=== PATIENT | male | born 1975 | race Caucasian/White ===

== ENCOUNTER 2019-11-26 09:36 | Day surgery (SDC) | payer OTHER ==
[2019-11-15 15:54] LABS: BASOPHILS % (AUTO) 0.3 % (0-1); EOSINOPHILS # (AUTO) 0.2 X10'3 (0-0.9); EOSINOPHILS % (AUTO) 3.1 % (0-6); LYMPHOCYTES # (AUTO) 1.6 X10'3 (1.1-4.8); LYMPHOCYTES % (AUTO) 26.6 % (21-51); MEAN CORPUSCULAR HEMOGLOBIN 29.5 PG (27.0-31.0); MEAN CORPUSCULAR HGB CONC 34.2 g/dL (33.0-36.5); MEAN CORPUSCULAR VOLUME 86.2 FL (78-98); MEAN PLATELET VOLUME 7.7 FL (7.4-10.4); MONOCYTES # (AUTO) 0.7 X10'3 (0-0.9); NEUTROPHILS # (AUTO) 3.6 X10'3 (1.8-7.7); PRE OP HEMATOCRIT 42.1 % (42.0-52.0); PRE OP HEMOGLOBIN 14.4 g/dL (14.0-17.9); PRE OP PLATELET COUNT 214 X10'3 (140-440); RED BLOOD COUNT 4.88 X10'6 (4.70-6.10); RED CELL DISTRIBUTION WIDTH 13.6 % (11.5-14.5)
[2019-11-15 16:16] LABS: ALBUMIN 3.9 G/DL (3.4-5.0); ALBUMIN/GLOBULIN RATIO 1.1 (1.1-1.5); ALKALINE PHOSPHATASE 57 IU/L (46-116); BLOOD UREA NITROGEN 14 MG/DL (7-18); BUN/CREATININE RATIO 16.9 (5.4-32.0); CALCIUM 8.9 MG/DL (8.5-10.1); CHLORIDE 103 MMOL/L (99-107); CREATININE 0.83 MG/DL (0.60-1.10); PRE OP ALT 41 U/L (30-65); PRE OP ANION GAP 8 (8-16); PRE OP AST 24 U/L (10-37); PRE OP BILIRUB, TOTAL 0.6 MG/DL (0.0-1.0); PRE OP GLUCOSE 98 MG/DL (70-104); PRE OP SODIUM 140 MMOL/L (135-145); TOTAL PROTEIN 7.5 G/DL (6.4-8.2); eGFR > 90 ML/MIN
[2019-11-26] VITALS (15 sets, daily range): BP systolic 113–145; BP diastolic 71–96
[~2019-11-26] VITALS: Ht 175.3 cm; Wt 88.5 kg
[~2019-11-26 09:36] MED LIST: ASCO-157 PO; BIOT1CAP3 PO; HYDR-4353 PO; ISOT20CA3 PO; KRILL OIL; LIDOcaine 0.5% (5mg/ml) 50ml vial ONE; MULT-1085 PO; TUMERIC; [UNRECOGNIZED DRUG - OTHER]; clindamycin-Cleocin 900mg/D5W 50 ML IV ONE; famotidine 20mg tablet PO ONE; ringers solution, lacted 1,000 ML IV SCH
[2019-11-26] MEDS ORDERED: ringers solution, lacted 1,000 ML IV SCH (09:52)
[2019-11-26] MEDS ORDERED: ondansetron/PF 4mg/2ml inj IV PRN (09:55)
[2019-11-26] MEDS ORDERED: hydrALAZINE 20mg/ml inj. IV PRN (09:55)
[2019-11-26] MEDS ORDERED: morphine 2 MG/ML inj. syringe IV PRN (09:55)
[2019-11-26] MEDS ORDERED: labetalol 20mg/4ml (5mg/ml) syringe IV PRN (09:55)
[2019-11-26] MEDS ORDERED: fentaNYL/PF 50MCG/1 ML 2ML syringe IV PRN (09:55)
[2019-11-26] MEDS ORDERED: BUPIVAcaine/PF 2.5mg/ml (0.25%) 10ml vial ONE (13:17)
[2019-11-26] MEDS ORDERED: MIDAZolam 1mg/ml 10ml vial ONE (13:21)
[2019-11-26] MEDS ORDERED: fentaNYL/PF 50MCG/1 ML 2ML syringe ONE (13:21)
[2019-11-26] MEDS ORDERED: propofol inj 20 ML IV ONE ×3 (13:25→14:16)
[2019-11-26] MEDS ORDERED: ketorolac trometh. 30mg/ml inj. ONE (13:25)
[2019-11-26] MEDS ORDERED: cefazolin/dext.iso 2,000MG/50 ML BAG IV ONE (13:27)
[2019-11-26] MEDS ORDERED: BUPIVAcaine/PF 2.5 mg/ml (0.25%) 30ml vial ONE (13:42)
--- NOTE | 2019-11-26 14:34 | NUR ---
Received from OR via [facility], accompanied by Anesthesiologist DR YARBROUGH and report given by Anesthesiologist. PT DROWSY, DENIES PAIN, RIGHT HAND/WRIST TO ABOVE ELBOW W/JORGE WRAP COVERING INCISIONS/DRSGS CDI, FINGERS PWD, TRIAL COURT JUSTICE 1-2 SECONDS. Addendum: 11/26/19 at 1455 by Vivian Westbrook RN Amended: Links added.
[2019-11-26] MEDS: morphine 4 MG/ML inj SYRINge IV PRN ×2 (15:12→15:23)
[2019-11-26] MEDS: fentaNYL/PF 50MCG/1 ML 2ML syringe IV PRN ×2 (15:53→16:05)
[2019-11-26] MEDS ORDERED: HYDROcodone/acetaminophen 10/325mg tab PO ONE (16:10)
[2019-11-26] MEDS ORDERED: acetaminophen 1,000mg/100ml IV 100 ML IV ONE (16:10)
--- NOTE | 2019-11-26 17:24 | NUR ---
PT PAIN MODERATE, DR YARBROUGH AWARE. D/C INSTRUCTIONS GIVEN AND GONE OVER W/PT AND PTS WHO VERBALIZED UNDERSTANDING. PT D/CD TO HOME VIA W/C TO PRIVATE VEHICLE W/O INCIDENT. Addendum: 11/26/19 at 1830 by Vivian Westbrook RN Amended: Links added.
== END 2019-11-26 17:24 | disposition home or self-care (01) ==
LOC: PAS 09:36 → EDUNIT# 12:45 → PAS 17:24
PROVIDERS: ATTEND Orthopaedic Surgery Hand Surgery
DX: G56.01 Carpal tunnel syndrome, right upper limb (principal); G56.31 Lesion of radial nerve, right upper limb; G47.33 Obstructive sleep apnea (adult) (pediatric); F41.9 Anxiety disorder, unspecified; E66.9 Obesity, unspecified; Z68.28 Body mass index [BMI] 28.0-28.9, adult; Z79.899 Other long term (current) drug therapy; Z20.828 Contact with and (suspected) exposure to other viral communicable diseases; Z98.890 Other specified postprocedural states; Z98.52 Vasectomy status; Z72.89 Other problems related to lifestyle; Z87.891 Personal history of nicotine dependence; Z88.8 Allergy status to other drugs, medicaments and biological substances
CPT/HCPCS: 36415; 64708; 64721; 80053; 82948; 85025; 87635; 93005; J0131; J1885; J2001; J2250; J2270; J2704; J3010; J3490; A4215; A6449; A7000; J7120

== ENCOUNTER → 2023-03-31 | Outpatient (CLI) | payer BC, OTHER ==
[~2023-03-31] MED LIST changes: -LIDOcaine 0.5% (5mg/ml) 50ml vial ONE; -clindamycin-Cleocin 900mg/D5W 50 ML IV ONE; -famotidine 20mg tablet PO ONE; -ringers solution, lacted 1,000 ML IV SCH
== END | disposition home or self-care (01) ==
LOC: RAD 13:11
PROVIDERS: ATTEND Student in an Organized Health Care Education/Training Program
DX: D49.59 Neoplasm of unspecified behavior of other genitourinary organ (principal); N44.8 Other noninflammatory disorders of the testis; N50.819 Testicular pain, unspecified
CPT/HCPCS: 76870; 93976

== ENCOUNTER 2023-05-29 13:44 | Outpatient (CLI) | payer OTHER | END 2023-05-29 23:59 | disposition home or self-care (01) | LOC: RAD 13:44 | PROVIDERS: ATTEND Pediatrics Sports Medicine | DX: M51.27 Other intervertebral disc displacement, lumbosacral region (principal); M47.816 Spondylosis without myelopathy or radiculopathy, lumbar region; M51.37 Other intervertebral disc degeneration, lumbosacral region | CPT/HCPCS: 72148 ==